=== PATIENT | female | born 1960 | race Caucasian/White ===

== ENCOUNTER 2016-07-13 20:25 | Emergency (ER) | payer OTHER ==
--- NOTE | 2016-07-13 20:32 | PDOC ---
Rapid Medical Evaluation Time Seen by Provider: 07/13/16 20:28 Medical Evaluation: Allergies Allergy/AdvReac Type Severity Reaction Status Date / Time No Known Allergies Allergy Verified 01/25/16 20:28 07/13/16 20:28 I have performed a brief in-person evaluation of this patient. The patient presents with a chief complaint of: left ear pain since last night . 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 Pt states radiation to left neck and left upper back with intermittent dizziness. No n/v/ headache/fever Pertinent physical exam findings: vss I have ordered the following: none The patient will proceed to fasttrack for further evaluation.
[2016-07-13 20:41] VITALS: BP 139/71; PULSE 76; TEMP 98.2; BMI 20.1
--- NOTE | 2016-07-13 21:27 | PDOC ---
History of Present Illness - General Chief Complaint: Ear Problem Stated Complaint: NECK PAIN/LIGHTHEADED/LT EAR PAIN Time Seen by Provider: 07/13/16 20:28 - History of Present Illness Initial Comments: 07/13/16 21:21 CHIEF COMPLAINT: ear pain HISTORY OF PRESENT ILLNESS: 55 yo F with hx of reconstructive left TM surgery presents to fast track with pain to left ear and neck pain. Patient denies fever, nausea, vomiting, diarrhea but reports dizziness yesterday and today. Patient reports that neck feels stiff and the pain comes and goes, but last night she was so uncomfortable she could not sleep. No recent travel or sick contacts. PAST MEDICAL HISTORY: Denies past medical history FAMILY HISTORY: Denies SOCIAL HISTORY: Denies tobacco, alcohol, illicit drug use. SURGICAL HISTORY: breast implants, L TM surgery ALLERGIES: No known drug allergies REVIEW OF SYSTEMS General/Constitutional: Denies fever or chills. Denies weakness, weight change. HEENT: Pain to left ear. Denies change in vision. Denies ear pain or discharge. Denies sore throat. Cardiovascular: Denies chest pain or shortness of breath. Respiratory: Denies cough, wheezing, or hemoptysis. Gastrointestinal: Denies nausea, vomiting, diarrhea or constipation. Denies rectal bleeding. Genitourinary: Denies dysuria, frequency, or change in urination. Musculoskeletal: Denies joint or muscle swelling or pain. Denies neck or back pain. Skin and breasts: Denies rash or easy bruising. Neurologic: Dizziness yesterday and a little today. Denies loss of consciousness, or loss of sensation. PHYSICAL EXAM General Appearance: Well-appearing, appropriately dressed. No apparent distress. HEENT: Perforated R TM, no erythema or discharge. Left TM s/p reconstructive surgery, no erythema or discharge. EOMI, PERRLA, normal ENT inspection, normal voice, TMs normal, pharynx normal. No conjunctival pallor. No photophobia, scleral icterus. Neck: Supple. Trachea midline. No tenderness, rigidity, carotid bruit, stridor , lymphadenopathy, or thyromegaly. Respiratory/Chest: Lungs CTAB. Cardiovascular: RRR. S1, S2. Musculoskeletal/Extremities: Tenderness to trapezius muscle of bilateral neck and shoulders on palpation. NO midline tenderness to cervical/thoracic/lumbar spine. Normal inspection. FROM of all extremities, normal capillary refill. Pelvis Stable. No CVA tenderness. No tenderness to extremities, pedal edema, swelling, erythema or deformity. Integumentary: Appropriate color, dry, warm. 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 Fully oriented, alert. Appropriate mood/affect. Motor strength 5/5. No appreciable EOM palsy, facial droop or sensory deficit. Past History - Past Medical History Allergies/Adverse Reactions: Allergies Allergy/AdvReac Type Severity Reaction Status Date / Time No Known Allergies Allergy Verified 07/13/16 20:30 Home Medications: Ambulatory Orders Cyclobenzaprine HCl 7.5 mg PO HS PRN #5 tablet 07/13/16 Diclofenac Sodium 50 mg PO BID #14 tablet. 07/13/16 Meclizine HCl [Antivert -] 25 mg PO DAILY #7 tablet 07/13/16 GI Disorders: Yes (gastritis) - Psycho/Social/Smoking Cessation Hx Suicidal Ideation: No Smoking History: Never smoked Have you smoked in the past 12 months: No Number of Cigarettes Smoked Daily: 0 Information on smoking cessation initiated: No Hx Alcohol Use: No Drug/Substance Use Hx: No Substance Use Type: None *Physical Exam - Vital Signs Last Vital Signs Temp Pulse Resp BP Pulse Ox 98.2 F 76 14 139/71 100 07/13/16 20:31 07/13/16 20:31 07/13/16 20:31 07/13/16 20:31 07/13/16 20:31 Medical Decision Making - Medical Decision Making 07/13/16 23:07 55 yo F with hx of reconstructive left TM surgery presents to fast track with pain to left ear and neck pain and accompanying dizziness Vertigo likely secondary to chronic ear infections and s/p reconstructive TM surgery. Neck pain appears to be incidental muscle spasms as trapezius muscle is tender on palpation. -Antivert 25 mg po daily -cyclobenzaprine 7.5 mg hs prn muscle spasm -diclofenac 50 mg bid Advised patient to take medication as prescribed and follow up with ENT as planned. Advised patient of signs and symptoms for return to ED. Patient verbalized understanding and agrees to plan. *DC/Admit/Observation/Transfer Diagnosis at time of Disposition: Ear pain, left, Neck muscle spasm - Discharge Dispostion Disposition: HOME Condition at time of disposition: Stable Admit: No - Prescriptions Prescriptions: Meclizine HCl [Antivert -] 25 mg PO DAILY #7 tablet Cyclobenzaprine HCl 7.5 mg PO HS PRN #5 tablet PRN Reason: Muscle Spasms Diclofenac Sodium 50 mg PO BID #14 tablet.dr - Referrals Referrals: Mike Delacruz MD [Staff Physician] - - Patient Instructions Printed Discharge Instructions: DI for Tympanic Membrane Perforation-Adult, DI for Neck Pain Additional Instructions: Please take medications as prescribed and follow up with ENT next week. If you experience sudden inability to move your neck, weakness to one side, change in speech, vision, or difficulty walking, or you develop fever, nausea, vomiting, diarrhea, or any new or worsening symptoms, please return to the ER.
== END 2016-07-13 21:38 | disposition home or self-care (01) ==
LOC: JER 20:25
DX: M62.838 Other muscle spasm (principal); H93.8X2 Other specified disorders of left ear
CPT/HCPCS: 99281-25

== ENCOUNTER → 2016-12-03 | Emergency (ER) | payer OTHER ==
[~2016-12-03] MED LIST: CEPHALEXIN MONOHYDRATE 250 MG CAPSULE (FP) ONE; CEPHALEXIN MONOHYDRATE 500 MG CAPSULE (UD) PO ONE; DIPHTH,PERTUSS(ACELL),TET 0.5 ML DISP.SYRIN IM ONE; TETANUS AND DIPHTHERIA TOXOID 0.5 ML DISP.SYRIN IM ONE
[2016-12-03 22:19] VITALS: BP 110/62; PULSE 76; TEMP 98.7; BMI 18.3
--- NOTE | 2016-12-03 23:13 | PDOC ---
History of Present Illness - General Chief Complaint: Laceration Stated Complaint: LACERATION Time Seen by Provider: 12/03/16 22:50 History Source: Patient Exam Limitations: No Limitations - History of Present Illness Initial Comments: 12/03/16 23:08 56yo Female patient with no significant past medical history presents to ED c/o right LE laceration. Patient states while removing her garbage, there was broken glass in the bag that cut her. Patient denies any other complaints at this time. Tetanus not up to date per patient. Timing/Duration: reports: just prior to arrival Severity: Yes: mild Location: reports: extremities Respiratory Risk Factors: denies: no cause identified, exposure to illness, exposure to allergen, foods, insect bite, insect sting, medications, pollen, soaps, other Modifying Factors: worse with: antihistamine, calamine lotion, prednisone, scratching, topical steriods, other Associated Symptoms: denies: denies symptoms, blisters, change in skin texture, edema, fever, flushing, headache, hives, jaundice, malaise, nasal congestion, numbness, pallor, paresthesia, petechiae, rash, sore throat, swelling/mass/lumps , tingling, other Past History - Travel Traveled outside of the country in the last 30 days: No Close contact w/someone who was outside of country & ill: No - Past Medical History Allergies/Adverse Reactions: Allergies Allergy/AdvReac Type Severity Reaction Status Date / Time No Known Allergies Allergy Verified 12/03/16 22:17 Home Medications: Ambulatory Orders Cephalexin Monohydrate [Keflex -] 500 mg PO BID #10 capsule 12/03/16 GI Disorders: Yes (gastritis) - Psycho/Social/Smoking Cessation Hx Suicidal Ideation: No Smoking History: Never smoked Have you smoked in the past 12 months: No Number of Cigarettes Smoked Daily: 0 Hx Alcohol Use: No Drug/Substance Use Hx: No Substance Use Type: None Review of Systems - Review of Systems Able to Perform ROS?: Yes Is the patient limited Kinyarwanda proficient: No Integumentary: Yes: Other (Laceration) All Other Systems: Reviewed and Negative *Physical Exam - Vital Signs Last Vital Signs Temp Pulse Resp BP Pulse Ox 98.7 F 76 18 110/62 100 12/03/16 22:17 12/03/16 22:17 12/03/16 22:17 12/03/16 22:17 12/03/16 22:17 - Physical Exam General Appearance: Yes: Nourished, Appropriately Dressed. No: Apparent Distress, Mild Distress, Moderate Distress, Severe Distress Neck: positive: Trachea midline, Normal Thyroid, Supple. negative: Decreased range of motion, Stridor, Lymphadenopathy (R), Lymphadenopathy (L) Respiratory/Chest: positive: Lungs Clear, Normal Breath Sounds. negative: Chest Tender, Respiratory Distress, Accessory Muscle Use, Labored Respiration, Rapid RR Cardiovascular: positive: Regular Rhythm, Regular Rate. negative: Tachycardia Musculoskeletal: positive: Normal Inspection. negative: CVA Tenderness, Decreased Range of Motion, Vertebral Tenderness Extremity: positive: Normal Capillary Refill, Normal Inspection, Normal Range of Motion. negative: Pedal Edema, Swelling, Calf Tenderness, Erythema, Inflammation Integumentary: positive: Normal Color, Dry, Warm, Other (1.5cm laceration to right LE, bleeding controlled. 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 intact, Fully Oriented, Alert, Normal Mood/ Affect, Normal Response, Motor Strength 5/5 Procedures - Laceration/Wound Repair Right Lower Lateral Leg Wound Length: to 2.5 cm Wound Explored: clean Wound's Depth, Shape: superficial, flap Irrigated w/ Saline: Yes Betadine Prep: No Wound Repaired With: Dermabond *DC/Admit/Observation/Transfer Diagnosis at time of Disposition: Laceration of leg Qualifiers: Encounter type: initial encounter Laterality: right Qualified Code(s): S81.811A - Laceration without foreign body, right lower leg, initial encounter - Discharge Dispostion Disposition: HOME Condition at time of disposition: Stable Admit: No - Prescriptions Prescriptions: Cephalexin Monohydrate [Keflex -] 500 mg PO BID #10 capsule - Patient Instructions Printed Discharge Instructions: DI for Laceration Repair With Dermabond Additional Instructions: Follow up with your doctor as needed. Let glue dry and fall off on own. Bath or shower as normal starting tomorrow. Take medications as prescribed. Print Language: HEBREW
== END | disposition home or self-care (01) ==
LOC: JER 22:13 → JERFT 22:13
PROC: 0HQKXZZ Repair Right Lower Leg Skin, External Approach (ICD-10-PCS; principal; 2016-12-03)
PROC: 3E0234Z Introduction of Serum, Toxoid and Vaccine into Muscle, Percutaneous Approach (ICD-10-PCS; 2016-12-03)
DX: S81.811A Laceration without foreign body, right lower leg, initial encounter (principal); W25.XXXA Contact with sharp glass, initial encounter; Y93.E9 Activity, other interior property and clothing maintenance; Y92.018 Other place in single-family (private) house as the place of occurrence of the external cause
CPT/HCPCS: 12001-25; 90471; 90715; 99282-25

== ENCOUNTER 2016-12-31 16:21 | Emergency (ER) | payer OTHER ==
[2016-12-31 16:29] VITALS: BP 102/61; PULSE 86; TEMP 98; BMI 20.1
[2016-12-31] MEDS ORDERED: KETOROLAC TROMETHAMINE 60 MG/2 ML VIAL IM ONE (18:28)
[2016-12-31] MEDS ORDERED: CYCLOBENZAPRINE HCL 10 MG TABLET (FP) PO ONE (18:28)
[2016-12-31] MEDS ORDERED: KETOROLAC TROMETHAMINE 60 MG/2 ML VIAL ONE (18:29)
--- NOTE | 2016-12-31 18:29 | PDOC ---
History of Present Illness - History of Present Illness Initial Comments: 12/31/16 18:29 The patient is a 56 year old female with no pertinent past medical history, who presents to the emergency department with a complaint of back pain for a week. Patient one week ago while stepping out of bed and fell and landed on her back on the bed frame. Since then the pain has been increasing in severity. Pain is primarily at waist line and extends paravertebra spinous musculature. Patient has tried Advil and icy hot patches with no resolution of symptoms. Denies any blood or darken urine. Denies any urinary or bowel incontinence. Patient denies numbness or tingling in her arms or legs. Patient denies fever, chills. Patient is otherwise very physically active. She works out 5 times a week and works at a [email or web address]. Denies chance of , Patient's son is at bed side assisting with translations <Daev Andrews - Last Filed: 12/31/16 18:29> - General History Source: Patient Exam Limitations: No Limitations - History of Present Illness Occurred: reports: last week <Annie Miller - Last Filed: 12/31/16 19:08> - General Chief Complaint: Back Pain Stated Complaint: BACK PAIN Time Seen by Provider: 12/31/16 18:11 Past History <Dave Andrews - Last Filed: 12/31/16 18:29> - Past Medical History GI Disorders: Yes (gastritis) - Psycho/Social/Smoking Cessation Hx Suicidal Ideation: No Smoking History: Never smoked Have you smoked in the past 12 months: No Number of Cigarettes Smoked Daily: 0 Information on smoking cessation initiated: No Hx Alcohol Use: No Drug/Substance Use Hx: No Substance Use Type: None <Annie Miller - Last Filed: 12/31/16 19:08> - Past Medical History Allergies/Adverse Reactions: Allergies Allergy/AdvReac Type Severity Reaction Status Date / Time No Known Allergies Allergy Verified 12/31/16 16:29 Home Medications: Ambulatory Orders Cyclobenzaprine HCl [Flexeril 10 mg] 10 mg PO BID PRN #14 tablet 12/31/16 Naproxen [Naprosyn -] 500 mg PO BID #20 tablet 12/31/16 Review of Systems - Review of Systems Able to Perform ROS?: Yes (with son in the room ) Constitutional: No: Chills, Fever <Dave Andrews - Last Filed: 12/31/16 18:29> - Review of Systems Able to Perform ROS?: Yes Is the patient limited Russian proficient: Yes Constitutional: Yes: Symptoms Reported, See HPI, Malaise, Weakness HEENTM: Yes: See HPI. No: Symptoms Reported : Yes: See HPI. No: Symptoms Reported Musculoskeletal: Yes: Symptoms Reported, See HPI, Back Pain, Joint Swelling ( lumbar spine ), Muscle Pain Integumentary: Yes: Symptoms Reported, See HPI, Bruising (to lumbar spine ) All Other Systems: Reviewed and Negative <Annei Miller - Last Filed: 12/31/16 19:08> *Physical Exam - Vital Signs Last Vital Signs Temp Pulse Resp BP Pulse Ox 98 F 86 18 102/61 99 12/31/16 16:26 12/31/16 16:26 12/31/16 16:12/31/16 16:12/31/16 16:26 - Physical Exam General Appearance: Yes: Nourished, Appropriately Dressed, Apparent Distress, Mild Distress HEENT: positive: Normal ENT Inspection Neck: positive: Supple (no C spine tenderness. ) Respiratory/Chest: positive: Lungs Clear. negative: Respiratory Distress Cardiovascular: positive: Regular Rhythm, Regular Rate Musculoskeletal: positive: Other (Point tenderness at spine at L2,3 with palpable spasm at the paraspinous musculature. Limted ROM secondary to pain) Extremity: positive: Normal Inspection Integumentary: positive: Normal Color, Dry, Warm Neurologic: positive: Fully Oriented, Alert, Normal Mood/Affect, Normal Response , Motor Strength 5/5. negative: Sensory Deficit <Dave Andrews - Last Filed: 12/31/16 18:29> - Vital Signs Last Vital Signs Temp Pulse Resp BP Pulse Ox 98 F 86 18 102/61 99 12/31/16 16:26 12/31/16 16:12/31/16 16:26 12/31/16 16:12/31/16 16:26 - Physical Exam General Appearance: Yes: Nourished, Appropriately Dressed, Apparent Distress HEENT: positive: TOYA, Normal ENT Inspection, TMs Normal, Pharynx Normal Neck: positive: Supple. negative: Tender Respiratory/Chest: positive: Lungs Clear, Normal Breath Sounds Musculoskeletal: positive: Normal Inspection, Decreased Range of Motion, Muscle Spasm (pupils spasm noted paravertebral spinous muscles, primarily the lumbar spine. Range of motion is limited second to approximately 30 of flexion. Has no crepitus or step-offs to spinous process however tenderness reproduced along L2-3,4). 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 Status post fall with residual muscle spasm. We'll treat with NSAIDs and cyclobenzaprine <Annie Miller - Last Filed: 12/31/16 19:08> Medical Decision Making - Medical Decision Making 12/31/16 18:58 The scribe's documentation has been prepared under my direction and personally reviewed by me in its entirety. I confirm that the note above accurately reflects all work, treatment, procedures, and medical decision making performed by me. 12/31/16 19:01 <Annie Miller - Last Filed: 12/31/16 19:08> *DC/Admit/Observation/Transfer - Attestations Scribe Attestion: 12/31/16 18:33 Documentation prepared by Dave Andrews, acting as medical or surgical instrument maker for Annie Miller NP <Dave Andrews - Last Filed: 12/31/16 18:29> - Discharge Dispostion Admit: No <Annie Miller - Last Filed: 12/31/16 19:08> Diagnosis at time of Disposition: Low back pain Qualifiers: Chronicity: acute Back pain laterality: unspecified Sciatica presence: without sciatica Qualified Code(s): M54.5 - Low back pain - Discharge Dispostion Disposition: HOME Condition at time of disposition: Stable - Prescriptions Prescriptions: Cyclobenzaprine HCl [Flexeril 10 mg] 10 mg PO BID PRN #14 tablet PRN Reason: spasm Naproxen [Naprosyn -] 500 mg PO BID #20 tablet - Patient Instructions Printed Discharge Instructions: DI for Back Strain or Sprain Additional Instructions: Rest, no heavy lifting or exercise until pain is resolved Hot soaks to neck and low back as often as possible/hot showers or Jacuzzis No massage or therapy until spasm is gone Continue ibuprofen 2-200 mg tablets every 6 hours for the next 3 days then as needed for pain and swelling Cyclobenzaprine 1-10mg every 8 hours as needed for spasm If not significant improvement within 24 hours with medication and rest regime, followup with private physician for change in medications and /or therapy. - Post Discharge Activity Work/School Note: Back to Work
== END 2016-12-31 19:13 | disposition home or self-care (01) ==
LOC: JERFT 16:21
PROC: 3E0233Z Introduction of Anti-inflammatory into Muscle, Percutaneous Approach (ICD-10-PCS; principal; 2016-12-31)
DX: M54.5 Low back pain (principal); W01.190A Fall on same level from slipping, tripping and stumbling with subsequent striking against furniture, initial encounter; W06.XXXA Fall from bed, initial encounter; Y93.89 Activity, other specified; Y92.032 Bedroom in apartment as the place of occurrence of the external cause
CPT/HCPCS: 72100-TC; 96372; 99281-25

== ENCOUNTER 2018-01-30 10:34 | Emergency (ER) | payer OTHER ==
[2018-01-30 10:40] VITALS: TEMP 98.9; BMI 20.1
[2018-01-30] MEDS ORDERED: PANTOPRAZOLE SODIUM 40 MG VIAL IVPUSH ONE (11:43)
[2018-01-30] MEDS ORDERED: MAG HYDROX/AL HYDROX/SIMETH 30 ML UNIT-DOSE CUP PO ONE (11:43)
[2018-01-30] MEDS ORDERED: SODIUM CHLORIDE 1,000 ML IV STA (11:45)
[2018-01-30] MEDS ORDERED: ACETAMINOPHEN 1000 MG/100 ML VIAL (NON FORMULARY) IVPB ONE (11:46)
--- NOTE | 2018-01-30 11:51 | PDOC ---
Attending Attestation - HPI HPI: 01/30/18 12:01 The patient is a 57 year old female, with a significant PMH of gastritis (H pylori), who presents to the emergency department with 1 month of intermittent epigastric abdominal pain. The patient states the epigastric abdominal pain is rated 10/10, described as a burning pain, worsened 1 hour after meals, with no alleviating factors. The patient states the epigastric pain has acutely worsened in the past day which prompted the ED visit this morning. The patient states she saw a GI doctor 1 month ago for the same complaint of epigastric pain , had an endoscopy which was negative and was prescribed Omeprazole. The patient denies any recent surgeries or travel. Denies history of abdominal surgeries. Denies any recent fast foods. The patient also endorses lightheadedness secondary to the epigastric pain. The patient denies chest pain, shortness of breath, headache. Denies fever, chills, nausea, vomit, diarrhea and constipation. Denies dysuria, frequency, urgency and hematuria. Allergies: NKA - Physicial Exam PE: 01/30/18 12:02 Vitals: Triage vital signs reviewed General Appearance: No acute distress, well nourished, well developed Head: Atraumatic Neck: Supple; No nuchal rigidity Chest Wall: Nontender Cardiac: Regular rate and rhythm, no murmurs, no rubs, no gallops Lungs: Clear to auscultation bilateral, good air movement bilaterally Abdomen: (+) Epigastric and right upper quadrant tenderness. (+) Suprapubic tenderness. No rebound or guarding. Soft, nondistended, normal bowel sounds. Rectal: Exam deferred Extremities: Full range of motion to all extremities, no cyanosis, clubbing, or edema Skin: Warm and dry, no rashes or lesions, no rash, no petechiae Neuro: AOX3; Cranial Nerves 2-12 grossly intact, Strength intact to all extremities, Sensation intact to all extremities Psych: Normal mood, normal affect - Medical Decision Making 01/30/18 12:01 Patient is a 57 year old female, with history of gastritis (H pylori), presents to the emergency department with 1 month of intermittent epigastric abdominal pain. Plan: EKG, Labs/ Blood work, CXR, Abdominal Ultrasound, Meds. <Deny Bearden - Last Filed: 01/30/18 12:01> - ED Attending Attestation I have performed the following: I have examined & evaluated the patient, The case was reviewed & discussed with the resident, I agree w/resident's findings & plan, Exceptions are as noted - Medical Decision Making Several month history of intermittent epigastric pain postprandial today no fever no elevated white blood cell count status post GI cocktail patient feels much better Ultrasound demonstrates no acute pathology. Patient stable for outpatient follow-up with GI. Findings, the need for follow-up and strict return instructions discussed with patient. <Luc Trveizo - Last Filed: 01/30/18 17:15> Attestations - Attestations 01/30/18 12:04 Documentation prepared by Deny Bearden, acting as biomedical equipment technician for Luc Trevizo MD. <Deny Bearden - Last Filed: 01/30/18 12:01>
--- NOTE | 2018-01-30 12:10 | PDOC ---
History of Present Illness - General Chief Complaint: Pain Stated Complaint: ABD PAIN Time Seen by Provider: 01/30/18 11:14 History Source: Patient, Family - History of Present Illness Initial Comments: 01/30/18 12:04 Pt is slovenian speaking. Hx elicited from pt and pt daughter 57 yo F w/ PMH of gastritis 2/2 H pylori p/w 1mo worsening 10/10 burning epigastric pain. 1mo ago pt was seen by GI doc and underwent endoscopy, which was normal (per pt) and was given omeprazole. Pain has been intermittent and has progressively worsened over the month but last night became severe. Pt also endorses pain in umbilical region. Pain worsens 1 hour after meals, with no alleviating factors. Denies any fever, chills, CP, SOB, n/v/d, urinary sxs, fast food, changes in diet, recent travel, abdominal surgeries, hx STDs. Patient also endorses lightheadedness secondary to the epigastric pain as well as 2 mo of non-malodorous yellow vaginal discharge, which she states she has had before. PMH/PSH: as per HPI. has had surgery on her ears (unclear what type). Breast implants Meds: omeprazole. famotidine 40 HS, dicyclomine 20mg q6hr SH: denies smoke, etoh, recreational drug use. Sexually active w/ . LMP 5 yrs ago. Past History - Past Medical History Allergies/Adverse Reactions: Allergies Allergy/AdvReac Type Severity Reaction Status Date / Time No Known Allergies Allergy Verified 01/30/18 10:36 Home Medications: Ambulatory Orders Dicyclomine HCl [Bentyl -] 20 mg PO Q6H 01/30/18 Famotidine [Pepcid] 40 mg PO DAILY 01/30/18 COPD: No GI Disorders: Yes (gastritis) - Suicide/Smoking/Psychosocial Hx Smoking History: Never smoked Have you smoked in the past 12 months: No Number of Cigarettes Smoked Daily: 0 Information on smoking cessation initiated: No Hx Alcohol Use: No Drug/Substance Use Hx: No Substance Use Type: None *Physical Exam - Vital Signs Last Vital Signs Temp Pulse Resp BP Pulse Ox 98.9 F 83 18 118/73 100 01/30/18 10:36 01/30/18 10:36 01/30/18 10:36 01/30/18 10:36 01/30/18 10:36 - Physical Exam Comments: 01/30/18 12:43 General: Mild distress HEENT: NCAT, PERRLA MMM, No erythema or exudates Cardio: RRR S1 S2 no m/r/g Lung: CTAB Abd: Soft +BS. TTP RUQ, epigastric, umbilical and suprabubic region. no tenderness on L side. non distended. neg [place] sign EXT: radial pulses/DP 2+ no edema Neuro" AOX3, grossly intact ED Treatment Course - LABORATORY CBC & Chemistry Diagram: 01/30/18 12:56 01/30/18 12:56 - RADIOLOGY Radiology Studies Ordered: Category Date Time Status CHEST X-RAY PORTABLE* [RAD] Stat Radiology 01/30/18 11:37 Ordered Medical Decision Making - Medical Decision Making 01/30/18 12:46 57 yo F w/ PMH of gastritis 2/2 H pylori p/w 1mo worsening 10/10 burning epigastric/umbilical pain worse after food. Likely worsening of gastritis vs cholecystitis vs pancreatitis -CBC, CMP, lipase, coag, UA -EKG and trop r/o ND -CXR -abd u/s for liver/biliary pathology -IVF -IV protonix, IV tylenol, maalox 01/30/18 15:12 pt feeling better labs wnl UA neg imaging is wnl will discharge w/ GI referral *DC/Admit/Observation/Transfer Diagnosis at time of Disposition: Gastritis, Abdominal pain - Discharge Dispostion Disposition: HOME Condition at time of disposition: Stable Decision to Admit order: No - Referrals Referrals: Deshawn Montenegro MD [Staff Physician] - - Patient Instructions Printed Discharge Instructions: DI for Gastritis Additional Instructions: You were seen in the ER for abdominal pain. We gave you fluids and medicine for pain which helped. Your labs and abdominal ultrasound were normal. You likely were experiencing an exacerbation of your gastritis. Please continue your home meds. Please continue taking omeprezole to reduce acid in your stomach Please avoid advil/ibuprofen and other NSAIDS for pain relief. Please take tylenol for pain relief Please take Tums or maalox/mylanata for upset stomach Please avoid fast food, greasy fatty food, and spicy food Please see your [facility] doctor or Dr Deshawn Montenegro ([facility]) within 1 week. If you experience any worsening abdominal pain, fever, chills, chest pain, shortness of breath, nausea, vomiting, diarrhea, blood in vomit, blood in stools , pain with urination, please come back to the ER or call 911. - Post Discharge Activity
[2018-01-30] MEDS ORDERED: MAG HYDROX/AL HYDROX/SIMETH 30 ML UNIT-DOSE CUP ONE (12:26)
[2018-01-30] MEDS ORDERED: PANTOPRAZOLE SODIUM 40 MG/100 ML BAG IVPB ONE (12:26)
[2018-01-30] MEDS ORDERED: ACETAMINOPHEN INJECTION 100 ML IVPB ONE (12:26)
[2018-01-30 13:09] LABS: BASO % 0.5 % (0-2.0); EOS % 0.4 % (0-4.5); HEMATOCRIT 41.2 % (32.4-45.2); HEMOGLOBIN 14.1 GM/dL (10.7-15.3); LYMPH % 19.5 % (8-40); MCH 28.7 pg (25.7-33.7); MCHC 34.2 g/dl (32.0-36.0); MEAN PLT VOLUME 11.4 fl (7.5-11.1); MONO % 6.7 % (3.8-10.2); NEUT % 72.9 % (42.8-82.8); PLATELET COUNT 166 K/MM3 (134-434); RBC 4.91 M/mm3 (3.60-5.2); RDW 13.8 % (11.6-15.6); WHITE BLOOD COUNT 8.9 K/mm3 (4.0-10.0)
[2018-01-30 13:21] LABS: INR 1.07 (0.83-1.09); PROTHROMBIN TIME (PATIENT) 12.1 SEC (9.7-13.0)
[2018-01-30 13:22] VITALS: BP 122/72; PULSE 18
[2018-01-30 13:57] LABS: ALBUMIN 4.1 g/dl (3.4-5.0); ALK PHOS 111 U/L (45-117); ANION GAP 6 MMOL/L (8-16); BILIRUBIN,TOTAL 0.4 mg/dL (0.2-1); BLOOD UREA NITROGEN 13 mg/dL (7-18); CHLORIDE 105 mmol/L (98-107); CO2 29 mmol/L (21-32); CREATININE 0.8 mg/dL (0.55-1.3); GLUCOSE,RANDOM 82 mg/dL (74-106); LIPASE 151 U/L (73-393); SGOT/AST 37 U/L (15-37); SGPT/ALT 37 U/L (13-61); SODIUM 140 mmol/L (136-145); TOT PROT 7.8 g/dl (6.4-8.2)
[2018-01-30 14:22] LABS: URINE APPEARANCE CLEAR; URINE BILIRUBIN NEGATIVE (<2.0 mg/dL); URINE COLOR LTYELLOW; URINE GLUCOSE (UA) NEGATIVE (NEGATIVE); URINE KETONE NEGATIVE (NEGATIVE); URINE LEUK ESTERASE NEGATIVE (NEGATIVE); URINE NITRITE NEGATIVE (NEGATIVE); URINE PROTEIN NEGATIVE (NEGATIVE); URINE UROBILINOGEN NEGATIVE mg/dL (0.2-1.0)
--- NOTE | 2018-01-30 14:33 | EKG ---
Test Reason : Blood Pressure : / mmHG Vent. Rate : 074 BPM Atrial Rate : 074 BPM P-R Int : 160 ms QRS Dur : 070 ms QT Int : 382 ms P-R-T Axes : 063 017 063 degrees QTc Int : 424 ms NORMAL SINUS RHYTHM NONSPECIFIC T WAVE ABNORMALITY ABNORMAL ECG NO PREVIOUS ECGS AVAILABLE Confirmed by JAYME WHITLOCK, ISABELL ([id number]) on 01/30/2018 2:32:29 PM Referred By: Confirmed By:ISABELL DELACRUZ MD
== END 2018-01-30 16:15 | disposition home or self-care (01) ==
LOC: JER 10:34
PROC: 3E033NZ Introduction of Analgesics, Hypnotics, Sedatives into Peripheral Vein, Percutaneous Approach (ICD-10-PCS; principal; 2018-01-30)
PROC: 3E033GC Introduction of Other Therapeutic Substance into Peripheral Vein, Percutaneous Approach (ICD-10-PCS; 2018-01-30)
DX: K29.70 Gastritis, unspecified, without bleeding (principal)
CPT/HCPCS: 36415; 71045-TC-FY; 76705-TC; 80053; 81003; 83690; 84484; 85025; 85610; 93005; 93010; 99282-25; J0131; J7030

== ENCOUNTER 2018-10-11 20:51 | Emergency (ER) | payer OTHER ==
[2018-10-11 20:55] VITALS: BMI 21.0
--- NOTE | 2018-10-11 21:26 | PDOC ---
History of Present Illness <Amairani Uribe - Last Filed: 10/12/18 00:06> - History of Present Illness Initial Comments: 10/11/18 21:52 No PCP Patient is a 58 year old female came in to the ED with the chief complaint of severe abdominal pain and diarrhoea. As per the patient, she had mild abdominal pain x 2 weeks after she took one table of a herbal supplement called " Menopause ease" for hot flashes. But this morning it got worse after she ate her breakfast (plantain and cheese), went to work today then she bought chicken and yam for lunch. Since then her abdominal pain worsened, it is located in the epigastric area, burning in nature, non radiating, associated with 8 episodes of watery diarrhoea, no blood. No nausea or vomiting. The intensity of abdominal pain was 10/10 hence came in to the ED for further evaluation. Denies fever, chills, rigors, sweating, chest pain, sob, cough, palpitation. No urinary symptoms. Appetite decreased. Patient also reports she has a h/o gastritis. She came in to the [facility] in 2018 with abdominal pain was sent home on Omeprazole. Followed up with GI and told her everything is normal. Last Endoscopy 2018 which was normal. Past Medical history: Gastritis Allergies: Milk Past Surgical history: Breast implant Social history: Lives at home with her . Smoking: Denies Alcohol: Denies Drugs: Denies Occupation: Works at a [employer]. Family Hx: Non contributory. <Solange Smiley - Last Filed: 10/12/18 05:40> - General Chief Complaint: Pain Stated Complaint: ABD/PAIN Time Seen by Provider: 10/11/18 21:25 Past History <Amairani Uribe - Last Filed: 10/12/18 00:06> - Travel Traveled outside of the country in the last 30 days: No Close contact w/someone who was outside of country & ill: No - Past Medical History COPD: No GI Disorders: Yes (gastritis) - Suicide/Smoking/Psychosocial Hx Smoking History: Never smoked Have you smoked in the past 12 months: No Number of Cigarettes Smoked Daily: 0 Hx Alcohol Use: No Drug/Substance Use Hx: No Substance Use Type: None <Solange Smiley - Last Filed: 10/12/18 05:40> - Past Medical History Allergies/Adverse Reactions: Allergies Allergy/AdvReac Type Severity Reaction Status Date / Time No Known Allergies Allergy Verified 10/11/18 20:53 Home Medications: Ambulatory Orders Black Cohosh Root [Menopause Support] 20 mg PO 10/11/18 Ranitidine HCl [Zantac] 300 mg PO HS #30 tablet 10/12/18 Review of Systems - Review of Systems Able to Perform ROS?: Yes Is the patient limited Danish proficient: No <Solange Smiley - Last Filed: 10/12/18 05:40> *Physical Exam - Vital Signs Last Vital Signs Temp Pulse Resp BP Pulse Ox 98.9 F 82 18 102/75 98 10/11/18 20:53 10/11/18 20:53 10/11/18 20:53 10/11/18 20:53 10/11/18 20:53 <Amairani Uribe - Last Filed: 10/12/18 00:06> - Vital Signs Last Vital Signs Temp Pulse Resp BP Pulse Ox 98.9 F 82 18 102/75 98 10/11/18 20:53 10/11/18 20:53 10/11/18 20:53 10/11/18 20:53 10/11/18 20:53 - Physical Exam Comments: 10/12/18 05:28 General: Patient is lying in bed, awake, alert, oriented x 2, in acute respiratory distress HEENT: EOM intact, no pallor or icterus. Chest: B/L Lungs clear, no added sounds CVS: Regular rate, rhythm, S1, S2, no murmurs Abdomen: Soft, tender to palpation in the epigastric area, BS +, no organomegaly. Ext: No pedal edema Neuro: Grossly normal, no facial droop. <Solange Smiley - Last Filed: 10/12/18 05:40> ED Treatment Course - LABORATORY CBC & Chemistry Diagram: 10/11/18 22:15 10/11/18 22:15 - ADDITIONAL ORDERS Additional order review: Laboratory Results 10/11/18 10/11/18 22:15 22:15 Sodium 139 Potassium 4.2 Chloride 106 Carbon Dioxide 31 Anion Gap 3 L BUN 13.4 Creatinine 0.9 Est GFR (CKD-EPI)AfAm 82.26 Est GFR (CKD-EPI)NonAf 70.98 Random Glucose 82 Calcium 9.1 Total Bilirubin 0.7 AST 19 ALT 24 Alkaline Phosphatase 91 Total Protein 7.7 Albumin 4.3 Total Amylase 96 Lipase 173 Urine Color Yellow Urine Appearance Clear Urine pH 6.0 Ur Specific [place] 1.011 Urine Protein Negative Urine Glucose (UA) Negative Urine Ketones Negative Urine Blood Negative Urine Nitrite Negative Urine Bilirubin Negative Urine Urobilinogen 0.2 Ur Leukocyte Esterase Negative Urine WBC (Auto) 1 Urine RBC (Auto) 1 Urine Casts (Auto) 0 U Epithel Cells (Auto) 0.4 Urine Bacteria (Auto) 4.2 10/11/18 22:15 RBC 4.72 MCV 83.3 MCHC 34.9 RDW 13.5 MPV 11.3 H Neutrophils % 52.4 D Lymphocytes % 38.7 D Monocytes % 7.3 Eosinophils % 0.9 D Basophils % 0.7 - Medications Given in the ED: ED Medications Discontinued Medications Generic Name Dose Route Start Last Admin Trade Name Freq PRN Reason Stop Dose Admin Acetaminophen 1,000 mg 10/11/18 21:50 10/11/18 22:22 Ofirmev Injection - IVPB 10/11/18 21:51 1,000 mg ONCE ONE Administration Al Hydroxide/Mg Hydroxide 30 ml 10/11/18 21:51 10/11/18 22:22 Mylanta Oral Suspension - PO 10/11/18 21:52 30 ml ONCE ONE Administration Famotidine/Sodium Chloride 20 mg in 50 mls @ 100 mls/hr 10/11/18 21:49 22:17 Pepcid 20 Mg Premixed Ivpb - IVPB 10/11/18 22:18 100 mls/hr ONCE ONE Administration Sodium Chloride 1,000 ml 10/11/18 21:49 10/11/18 22:17 Normal Saline - IV 10/11/18 21:50 1,000 ml ONCE ONE Administration <Amairani Uribe - Last Filed: 10/12/18 00:06> - LABORATORY CBC & Chemistry Diagram: 10/11/18 22:15 10/11/18 22:15 <Solange Smiley - Last Filed: 10/12/18 05:40> Medical Decision Making - Medical Decision Making 10/11/18 20:00 Patient is a 58 year old female with hx of Gastritis came in to the ED for evaluation of abdominal pain, diarrhoea 8episdoes. Differential diagnosis: Viral gasteroentertis with gastritis Will send CBC, CMP, UA 10/11/18 21:00 Labs unremarkable. Patient still complaining of abdominal pain. Will send CT abdomen/Pelvis without contrast. 10/11/2018 21:30 CT abd/pelvis no acute pathology as prelim read 10/11/18 21:35 Patient is stable to be discharged home with instructions to follow up with GI this week. <Solange Smiley - Last Filed: 10/12/18 05:40> *DC/Admit/Observation/Transfer - Discharge Dispostion Decision to Admit order: No <Amairani Uribe - Last Filed: 10/12/18 00:06> <Solange Smiley - Last Filed: 10/12/18 05:40> Diagnosis at time of Disposition: Food poisoning - Discharge Dispostion Disposition: HOME Condition at time of disposition: Improved - Prescriptions Prescriptions: Ranitidine HCl [Zantac] 300 mg PO HS #30 tablet - Patient Instructions Printed Discharge Instructions: DI for Food Poisoning
[2018-10-11] MEDS ORDERED: FAMOTIDINE 20 MG/50 ML IVPB 20 MG/50 ML MG IVPB ONE ×2 (21:49→21:56)
[2018-10-11] MEDS ORDERED: SODIUM CHLORIDE 0.9% 500 ML INFUS.BAG IV ONE (21:49)
[2018-10-11] MEDS ORDERED: ACETAMINOPHEN 1000 MG/100 ML VIAL (NON FORMULARY) IVPB ONE (21:50)
[2018-10-11] MEDS ORDERED: MAG HYDROX/AL HYDROX/SIMETH 30 ML UNIT-DOSE CUP PO ONE (21:51)
[2018-10-11] MEDS ORDERED: MAG HYDROX/AL HYDROX/SIMETH 30 ML UNIT-DOSE CUP ONE (21:56)
[2018-10-11] MEDS ORDERED: ACETAMINOPHEN INJECTION 100 ML IVPB ONE (21:56)
[2018-10-11 22:23] LABS: BASO % 0.7 % (0-2.0); EOS % 0.9 % (0-4.5); HEMATOCRIT 39.3 % (32.4-45.2); HEMOGLOBIN 13.7 GM/dL (10.7-15.3); LYMPH % 38.7 % (8-40); MCH 29.1 pg (25.7-33.7); MCHC 34.9 g/dl (32.0-36.0); MEAN CELL VOLUME 83.3 fl (80-96); MEAN PLT VOLUME 11.3 fl (7.5-11.1); MONO % 7.3 % (3.8-10.2); NEUT % 52.4 % (42.8-82.8); RBC 4.72 M/mm3 (3.60-5.2); RDW 13.5 % (11.6-15.6); WHITE BLOOD COUNT 7.6 K/mm3 (4.0-10.0)
[2018-10-11 23:03] LABS: ALBUMIN 4.3 g/dl (3.4-5.0); BILIRUBIN,TOTAL 0.7 mg/dL (0.2-1); BLOOD UREA NITROGEN 13.4 mg/dL (7-18); CALCIUM 9.1 mg/dL (8.5-10.1); CREATININE 0.9 mg/dL (0.55-1.3); POTASSIUM 4.2 mmol/L (3.5-5.1); TOT PROT 7.7 g/dl (6.4-8.2)
[2018-10-11 23:11] LABS: PLATELET COUNT 160 K/MM3 (134-434)
[2018-10-11 23:12] LABS: PLATELET ESTIMATE ADEQUATE
[2018-10-11 23:39] LABS: EPI CELLS 0.4 /HPF (0-5/HPF); HYALINE CASTS 0 /lpf (0-8); URINE APPEARANCE CLEAR; URINE BACTERIA 4.2 /hpf (NEGATIVE); URINE BILIRUBIN NEGATIVE (NEGATIVE); URINE COLOR YELLOW; URINE GLUCOSE (UA) NEGATIVE (NEGATIVE); URINE KETONE NEGATIVE (NEGATIVE); URINE LEUK ESTERASE NEGATIVE (NEGATIVE); URINE NITRITE NEGATIVE (NEGATIVE); URINE PROTEIN NEGATIVE (NEGATIVE); URINE RBC 1 /hpf (0-4); URINE UROBILINOGEN 0.2 mg/dL (0.2-1.0); URINE WBC 1 /hpf (0-5)
--- NOTE | 2018-10-12 00:06 | PDOC ---
Documentation entered by Lore Scherer SCRIBE, acting as scribe for Amairani Uribe MD. Amairani Uribe MD: This documentation has been prepared by the Niesha gonzalez Xhesika, SCRIBE, under my direction and personally reviewed by me in its entirety. I confirm that the documentation accurately reflects all work, treatment, procedures, and medical decision making performed by me. Attending Attestation - Resident Resident Name: Solange Smiley - ED Attending Attestation I have performed the following: I have examined & evaluated the patient, The case was reviewed & discussed with the resident, I agree w/resident's findings & plan - HPI HPI: 10/11/18 22:00 The patient is a 58 year old female, with a significant PMH of gastritis (H pylori) who presents to the emergency department with severe abdominal pain and 8 episodes of diarrhea. The patient states she took a menopausal supplement 2 weeks ago for hot flashes, with mild to no relief. 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 Patient states shortly after eating she started endorsing abdominal pain. The patient states she has been endorsing dizziness and blurry vision, secondary to her pain. The patient denies chest pain, shortness of breath, headache. Denies fever, chills, nausea, vomiting, and constipation. Denies dysuria, frequency, urgency and hematuria. Allergies: NKDA Past surgical history: breast reduction - Physicial Exam PE: 10/11/18 23:35 GENERAL: Awake, alert, and fully oriented, in no acute distress HEAD: No signs of trauma EYES: PERRLA, EOMI, sclera anicteric, conjunctiva clear ENT: Auricles normal inspection, hearing grossly normal, nares patent, oropharynx clear without exudates. Moist mucosa NECK: Normal ROM, supple, no lymphadenopathy, JVD, or masses LUNGS: Breath sounds equal, clear to auscultation bilaterally. No wheezes, and no crackles HEART: Regular rate and rhythm, normal S1 and S2, no murmurs, rubs or gallops ABDOMEN: Soft, nontender. (+) gassy bowel sounds. No guarding, no rebound. No masses EXTREMITIES: Normal range of motion, no edema. No clubbing or cyanosis. No cords, erythema, or tenderness NEUROLOGICAL: Cranial nerves II through XII grossly intact. Normal speech, normal gait SKIN: Warm, Dry, normal turgor, no rashes or lesions noted. - Medical Decision Making 10/11/18 23:59 UA normal; CBC normal; chem normal. 10/12/18 00:04 Patient Name: LEAHY THIS IS A PRELIMINARY REPORT FROM [facility] DATE OF SERVICE: 2018-10-11 23:01:43 IMAGES: [id number] EXAM: ABDOMEN \T\ PELVIS CT W/O CONTR HISTORY: Abdominal pain. Rule out colitis, renal stone COMPARISON: None. FINDINGS: There is mild dependent atelectasis of the lung bases. Bilateral breast implants are partially included The unenhanced liver, gallbladder, spleen, pancreas and adrenal glands are without gross abnormality The kidneys are normal in size without hydronephrosis. There is a 3 mm nonobstructing stone in the upper pole of the left kidney. No stones are seen along the course of the ureters or within the bladder. There is no bowel distention. A normal appendix is visualized There is a left adnexal/ovarian cystic structure measuring 4.5 cm. Consider further evaluation with ultrasound Few small possibly myomatous calcifications in the uterus No intra-abdominal free air or free fluid Nodular opacities and scarring in the soft tissues of both buttocks possibly related to remote liposuctionsurgery Thoracolumbar dextroscoliosis 10/12/18 00:05 Pt is stable for d/c; she will be given a copy of her CT scan. Imp: food poisoning.
[2018-10-12] MEDS ORDERED: LOPERAMIDE HCL 2 MG CAPSULE PO ONE (00:07)
[2018-10-12] MEDS ORDERED: LOPERAMIDE HCL 2 MG CAPSULE ONE (00:13)
[2018-10-12 00:25] VITALS: BP 106/88; PULSE 80; TEMP 98.1
== END 2018-10-12 00:26 | disposition home or self-care (01) ==
LOC: JER 20:51
PROC: 3E033GC Introduction of Other Therapeutic Substance into Peripheral Vein, Percutaneous Approach (ICD-10-PCS; principal; 2018-10-11)
PROC: 3E033NZ Introduction of Analgesics, Hypnotics, Sedatives into Peripheral Vein, Percutaneous Approach (ICD-10-PCS; 2018-10-11)
DX: T62.8X1A Toxic effect of other specified noxious substances eaten as food, accidental (unintentional), initial encounter (principal); K52.1 Toxic gastroenteritis and colitis; Y92.038 Other place in apartment as the place of occurrence of the external cause
CPT/HCPCS: 36415; 74176-TC; 80053; 81003; 82150; 83690; 85025; 96365; 96375; 99282-25; J0131

== ENCOUNTER 2018-12-22 10:25 | Emergency (ER) | payer OTHER ==
[2018-12-22 10:30] VITALS: BP 108/66; PULSE 16; TEMP 98.9; BMI 20.1
--- NOTE | 2018-12-22 11:39 | PDOC ---
History of Present Illness - General Chief Complaint: Pain, Acute Stated Complaint: LT KNEE PAIN Time Seen by Provider: 12/22/18 11:23 - History of Present Illness Initial Comments: 12/22/18 11:39 58 y/o F without comorbidities presents for evaluation of one week of atraumatic left knee pain. No systemic symptoms. Past History - Past Medical History Allergies/Adverse Reactions: Allergies Allergy/AdvReac Type Severity Reaction Status Date / Time No Known Allergies Allergy Verified 12/22/18 10:31 Home Medications: Ambulatory Orders Black Cohosh Root [Menopause Support] 20 mg PO 10/11/18 Ranitidine HCl [Zantac] 300 mg PO HS #30 tablet 10/12/18 Ibuprofen [Motrin -] 600 mg PO TID #30 tablet 12/22/18 COPD: No GI Disorders: Yes (gastritis) - Suicide/Smoking/Psychosocial Hx Smoking History: Never smoked Have you smoked in the past 12 months: No Number of Cigarettes Smoked Daily: 0 Hx Alcohol Use: No Drug/Substance Use Hx: No Substance Use Type: None Review of Systems - Review of Systems Musculoskeletal: Yes: Joint Pain *Physical Exam - Vital Signs Last Vital Signs Temp Pulse Resp BP Pulse Ox 98.9 F 16 L 83 H 108/66 98 12/22/18 10:27 12/22/18 10:27 12/22/18 10:27 12/22/18 10:27 12/22/18 10:27 - Physical Exam Comments: 12/22/18 11:38 Left knee skin color and temperature are normal range of motion is full with pain at the posterior medial aspect of the left knee at terminal flexion. Tenderness in that area as well. Posterior medial joint line tenderness. No other areas of tenderness or crepitation. Positive Sudha's no instability or gross sensorimotor deficits extensor mechanism is intact thighs and calves are soft and nontender straight leg raise test negative neurovascularly intact. Medical Decision Making - Medical Decision Making 12/22/18 11:38 Left knee examination consistent with posterior medial meniscal tear. Follow-up with weight-bear as tolerated prescription for Motrin given. *DC/Admit/Observation/Transfer Diagnosis at time of Disposition: Left medial knee pain - Discharge Dispostion Disposition: HOME Condition at time of disposition: Stable Decision to Admit order: No - Referrals Referrals: Weston,Azeem A, DO [Staff Physician] - - Patient Instructions Printed Discharge Instructions: Meniscal Tear Additional Instructions: Tylenol as directed for pain. Prescription strength Motrin as directed. No other anti-inflammatories. Return to the emergency room for worsening symptoms. Weight-bear as tolerated follow-up with orthopedics in 1-2 days for further evaluation and treatment options - Post Discharge Activity
== END 2018-12-22 11:44 | disposition home or self-care (01) ==
LOC: JERFT 10:25
DX: M25.562 Pain in left knee (principal)
CPT/HCPCS: 99282-25

== ENCOUNTER 2019-01-13 21:27 | Emergency (ER) | payer OTHER | END 2019-01-14 00:25 | disposition home or self-care (01) | LOC: JER 01-14 00:25 | PROC: 3E0337Z Introduction of Electrolytic and Water Balance Substance into Peripheral Vein, Percutaneous Approach (ICD-10-PCS; principal; 2019-01-13) | DX: Z86.69 Personal history of other diseases of the nervous system and sense organs (principal) ==

== ENCOUNTER 2023-10-02 21:16 | Emergency (ER) | payer OTHER ==
[2023-10-02 21:29] VITALS: BP 129/82; PULSE 75; RESP 20; TEMP 98.7; BMI 20.1
[2023-10-02] MEDS ORDERED: MECLIZINE HCL 25 MG TABLET (FP) ONE (22:53)
[2023-10-02] MEDS ORDERED: ACETAMINOPHEN 325 MG TABLET (FP) ONE (22:53)
[2023-10-02] MEDS: ACETAMINOPHEN 500 MG TABLET (FP) PO ONE (23:07)
[2023-10-02] MEDS: MECLIZINE HCL 25 MG TABLET (FP) PO ONE (23:07)
[2023-10-03] MEDS ORDERED: KETOROLAC TROMETHAMINE 30 MG/1 ML VIAL ONE (00:28)
[2023-10-03] MEDS: KETOROLAC TROMETHAMINE 30 MG/1 ML VIAL IM ONE (00:30)
== END 2023-10-03 00:34 | disposition home or self-care (01) ==
LOC: JER 21:16
PROC: 3E0233Z Introduction of Anti-inflammatory into Muscle, Percutaneous Approach (ICD-10-PCS; principal; 2023-10-02)
DX: R51.9 Headache, unspecified (principal); R55 Syncope and collapse
CPT/HCPCS: 70450-TC; 93005; 93010; 99285-25

== ENCOUNTER 2023-12-03 20:46 | Emergency (ER) | payer OTHER ==
[2023-12-03 20:58] VITALS: BP 150/82; PULSE 78; RESP 20; TEMP 98.5; BMI 20.1
[2023-12-03] MEDS ORDERED: METHOCARBAMOL 500 MG TABLET ONE (21:33)
[2023-12-03] MEDS ORDERED: LIDOCAINE 4% PATCH TP ONE (21:34)
[2023-12-03] MEDS ORDERED: KETOROLAC TROMETHAMINE 30 MG/1 ML VIAL ONE (21:34)
[2023-12-03] MEDS: KETOROLAC TROMETHAMINE 30 MG/1 ML VIAL IM ONE (21:40)
[2023-12-03] MEDS: METHOCARBAMOL 500 MG TABLET PO ONE (21:40)
[2023-12-03] MEDS: LIDOCAINE 5% TOPICAL PATCH TP ONE (21:40)
[2023-12-03] MEDS: LIDOCAINE PATCH REMOVAL MC SCH (22:00)
[2023-12-04 00:38] LABS: HIV INTERPRETATION NEGATIVE (NEGATIVE)
== END 2023-12-03 23:06 | disposition home or self-care (01) ==
LOC: JER 20:46
PROC: 3E0333Z Introduction of Anti-inflammatory into Peripheral Vein, Percutaneous Approach (ICD-10-PCS; principal; 2023-12-03)
DX: M62.838 Other muscle spasm (principal); M54.50 Low back pain, unspecified
CPT/HCPCS: 36415; 72100-TC-FY; 87389; 99284-25